=== PATIENT | male | born 1950 | race Caucasian/White ===

== ENCOUNTER → 2016-02-28 | Outpatient (CLI) | payer MEDICARE, OTHER ==
[2016-02-28 13:47] LABS: RED CELL DISTRIBUTION WIDTH 12.7 % (11.5-14.5); WHITE BLOOD COUNT 7.1 K/mm3 (4.0-10.0)
[2016-02-28 13:50] LABS: ALBUMIN 3.6 GM/DL (3.2-5.2); ALBUMIN/GLOBULIN RATIO 1.24 (1.00-1.93); ALKALINE PHOSPHATASE 59 U/L (45-117); ALT/SGPT 33 U/L (12-78); ANION GAP 5 MEQ/L (8-16); AST/SGOT 13 U/L (15-37); BILIRUBIN,TOTAL 0.3 MG/DL (0.2-1.0); BLOOD UREA NITROGEN 25 MG/DL (7-18); CALCIUM LEVEL 8.6 MG/DL (8.8-10.2); CARBON DIOXIDE LEVEL 35 MEQ/L (21-32); CHLORIDE LEVEL 106 MEQ/L (98-107); CHOLESTEROL LEVEL 213 MG/DL (<200); CREATININE FOR GFR 1.06 MG/DL (0.70-1.30); GLOMERULAR FILTRATION RATE > 60.0 (>49); GLUCOSE, FASTING 110 MG/DL (80-110); POTASSIUM SERUM 3.7 MEQ/L (3.5-5.1); SODIUM LEVEL 146 MEQ/L (136-145); TOTAL PROTEIN 6.5 GM/DL (6.4-8.2); TRIGLYCERIDES LEVEL 489 MG/DL (<150)
[2016-02-28 13:54] LABS: MEAN CORPUSCULAR HEMOGLOBIN 32.7 pg (27.0-33.0); MEAN CORPUSCULAR VOLUME 93.3 fl (80.0-96.0)
== END ==
LOC: M SMT 08:08
PROVIDERS: ATTEND Internal Medicine
DX: D69.6 Thrombocytopenia, unspecified (principal); I10 Essential (primary) hypertension; R73.01 Impaired fasting glucose; E78.5 Hyperlipidemia, unspecified

== ENCOUNTER → 2016-07-03 | Outpatient (CLI) | payer MEDICARE, OTHER ==
[~2016-07-03] VITALS: Ht 175.3 cm; Wt 83.9 kg
[~2016-07-03] MED LIST: ASPI1TAB PO; CENTTAB PO; CHLO25TA PO; CO-QCAP PO; COZA50TA PO; FISH1000 PO; FLOM5CAP PO; LIDOCAINE 2% INJ 100 MG/5 ML SDV (FOR ANES.) As Ordered ONE; LR 1,000 ML IV SCH; NASA1SPR; OSTETAB4 PO; PRIL20CA9 PO; PROPOFOL 200 MG/20 ML VIAL As Ordered ONE; SUCR1TA PO; VITMTA PO; ZYRT10TA2 PO
--- NOTE | 2016-07-03 13:28 | ROOR ---
Patient Name: Shubham Mao Procedure Date: 07/03/2016 12:39 PM Date of : 1950 Age: 66 Room: [facility] Gender: Male Note Status: Finalized Procedure: Colonoscopy Indications: Last colonoscopy: 2007, Heme positive stool Providers: Shen Landeros MD Referring MD: Jon Coates MD Requesting Provider: Medicines: Monitored Anesthesia Care Complications: No immediate complications. Procedure: Pre-Anesthesia Assessment: - Prior to the procedure, a History and Physical was performed, and patient medications and allergies were reviewed. The patient is competent. The risks and benefits of the procedure and the sedation options and risks were discussed with the patient. All questions were answered and informed consent was obtained. Patient identification and proposed procedure were verified by the physician, the nurse and the anesthesiologist in the procedure room. Mental Status Examination: alert and oriented. Airway Examination: normal oropharyngeal airway and neck mobility. CV Examination: regular rate and rhythm. Prophylactic Antibiotics: The patient does not require prophylactic antibiotics. Prior Anticoagulants: The patient has taken no previous anticoagulant or antiplatelet agents. ASA Grade Assessment: II - A patient with mild systemic disease. After reviewing the risks and benefits, the patient was deemed in satisfactory condition to undergo the procedure. The anesthesia plan was to use monitored anesthesia care (MAC). Immediately prior to administration of medications, the patient was re-assessed for adequacy to receive sedatives. The heart rate, respiratory rate, oxygen saturations, blood pressure, adequacy of pulmonary ventilation, and response to care were monitored throughout the procedure. The physical status of the patient was re-assessed after the procedure. The was introduced through the anus and advanced to the cecum, identified by appendiceal orifice and ileocecal valve. The colonoscopy was performed without difficulty. The patient tolerated the procedure well. The quality of the bowel preparation was good. Findings: The perianal and digital rectal examinations were normal. A 10 mm polyp was found in the cecum. The polyp was sessile. The polyp was removed with a hot snare. Resection was complete, but the polyp tissue was only partially retrieved. Estimated blood loss: none. The exam was otherwise normal throughout the examined colon. Impression: - One 10 mm polyp in the cecum, removed with a hot snare. Complete resection. Partial retrieval. Recommendation: - Discharge patient to home. - Resume previous diet. - Continue present medications. - Await pathology results. - Telephone endoscopist for pathology results in 10 days. Shen Landeros MD 07/03/2016 1:28:02 PM Number of Addenda: 0 Note Initiated On: 07/03/2016 12:39 PM Estimated Blood Loss: Estimated blood loss: none.
[2016-07-03 13:45] VITALS: BP 106/65
== END | disposition home or self-care (01) ==
LOC: M OPP 11:52
PROVIDERS: ATTEND Surgery
DX: R19.5 Other fecal abnormalities (principal); D12.0 Benign neoplasm of cecum; I10 Essential (primary) hypertension; Z86.19 Personal history of other infectious and parasitic diseases; M19.90 Unspecified osteoarthritis, unspecified site; G47.30 Sleep apnea, unspecified; K21.9 Gastro-esophageal reflux disease without esophagitis; R06.83 Snoring; N40.1 Benign prostatic hyperplasia with lower urinary tract symptoms; Z85.828 Personal history of other malignant neoplasm of skin; Z88.8 Allergy status to other drugs, medicaments and biological substances; Z79.82 Long term (current) use of aspirin; Z79.899 Other long term (current) drug therapy

== ENCOUNTER 2016-07-07 11:23 | Emergency (ER) | payer MEDICARE, OTHER ==
[~2016-07-07] VITALS: Ht 175.3 cm; Wt 81.6 kg
[~2016-07-07 11:23] MED LIST changes: -LIDOCAINE 2% INJ 100 MG/5 ML SDV (FOR ANES.) As Ordered ONE; -LR 1,000 ML IV SCH; -PRIL20CA9 PO; -PROPOFOL 200 MG/20 ML VIAL As Ordered ONE; -SUCR1TA PO; -VITMTA PO
[2016-07-07] MEDS ORDERED: NS 1,000 ML IV ONE (12:30)
[2016-07-07 12:52] LABS: BASO % 0.5 % (0.0-1.0); EOS # 0.2 K/mm3 (0.0-0.50); EOS % 1.9 % (0.0-3.0); LARGE UNSTAINED CELL # 0.2 K/mm3 (0.0-0.4); LYMPH # 4.2 K/mm3 (1.5-4.5); LYMPH % 48.6 % (24.0-44.0); MEAN CORPUSCULAR HEMOGLOBIN 32.7 pg (27.0-33.0); MEAN CORPUSCULAR HGB CONC 35.5 g/dl (32.0-36.5); MEAN CORPUSCULAR VOLUME 92.2 fl (80.0-96.0); MONO # 0.4 K/mm3 (0.0-0.8); NEUTROPHILS # 3.5 K/mm3 (1.8-7.7); PLATELET COUNT, AUTOMATED 134 k/mm3 (150-450); RED CELL DISTRIBUTION WIDTH 12.7 % (11.5-14.5); WHITE BLOOD COUNT 8.3 K/mm3 (4.0-10.0)
[2016-07-07 13:10] LABS: INR 0.96
[2016-07-07 13:21] LABS: ALBUMIN 3.9 GM/DL (3.2-5.2); ALBUMIN/GLOBULIN RATIO 1.34 (1.00-1.93); ALKALINE PHOSPHATASE 53 U/L (45-117); ALT/SGPT 49 U/L (12-78); ANION GAP 7 MEQ/L (8-16); AST/SGOT 22 U/L (15-37); BILIRUBIN,DIRECT 0.1 MG/DL (0.0-0.2); BILIRUBIN,TOTAL 0.6 MG/DL (0.2-1.0); BLOOD UREA NITROGEN 25 MG/DL (7-18); CALCIUM LEVEL 8.7 MG/DL (8.8-10.2); CARBON DIOXIDE LEVEL 31 MEQ/L (21-32); CHLORIDE LEVEL 104 MEQ/L (98-107); CREATININE FOR GFR 1.05 MG/DL (0.70-1.30); GLOMERULAR FILTRATION RATE > 60.0 (>49); GLUCOSE, FASTING 113 MG/DL (80-110); POTASSIUM SERUM 3.6 MEQ/L (3.5-5.1); SODIUM LEVEL 142 MEQ/L (136-145); TOTAL PROTEIN 6.8 GM/DL (6.4-8.2)
[2016-07-07] MEDS ORDERED: ISOVUE-370 76% 100ML VIAL (Q9967) As Ordered ONE (13:25)
--- NOTE | 2016-07-07 15:00 | REP ---
Clinical: Abdominal pain and rectal bleeding with recent colonoscopy. Technique: Axial contrast enhanced images from the lung bases to the pubic symphysis using 100 ml Isovue 370 intravenous contrast material with coronal and sagittal re-formations. Findings: Diffuse intra-abdominal, retroperitoneal and pelvic adenopathy is appreciated with lymph nodes measuring greater than 2.8 cm maximal diameter. No surrounding inflammatory changes or fluid is appreciated, and findings are concerning for lymphoma. Liver, spleen, pancreas, gallbladder, bilateral adrenal glands are normal. The kidneys and demonstrate bilateral cortical and parapelvic cysts without evidence for hydronephrosis, perinephric stranding, intrarenal or obstructing ureteral calculi. The enteric system is unremarkable and without obstruction or acute inflammatory process. Normal terminal ileum and appendix identified in the right lower quadrant. Few scattered sigmoid diverticula noted without acute diverticulitis. Pelvis demonstrates normal bladder. The prostate gland is mildly heterogeneous and enlarged measuring approximately 5.6 cm maximal transverse diameter. No ascites. No free air. Vascular structures are normal. Musculoskeletal structures are within normal limits and without focal osseous abnormality. Lung bases demonstrate minimal basilar atelectasis and mild cardiomegaly. Impression: 1. Diffuse intra-abdominal, retroperitoneal and pelvic adenopathy with lymph nodes measuring greater than 2.8 cm diameter highly suggestive of lymphoma. 2. Enlarged prostate gland. Signed by Christiano Brown MD 07/07/2016 02:52 P
[2016-07-07 16:02] VITALS: BP 142/68
[2016-07-07] MEDS ORDERED: VITMTA PO (22:57)
[2016-07-08] MEDS ORDERED: SUCR1TA PO (08:08)
[2016-07-08] MEDS ORDERED: PRIL20CA9 PO (08:08)
== END 2016-07-07 16:23 | disposition home or self-care (01) ==
LOC: M ED 12:41
DX: K92.1 Melena (principal); R59.9 Enlarged lymph nodes, unspecified; N40.0 Benign prostatic hyperplasia without lower urinary tract symptoms; Z79.899 Other long term (current) drug therapy; Z88.8 Allergy status to other drugs, medicaments and biological substances

== ENCOUNTER 2016-07-07 19:55 | Inpatient (IN) | payer MEDICARE, OTHER ==
[~2016-07-07] VITALS: Ht 175.3 cm; Wt 84.1 kg
[2016-07-07 21:06] LABS: ANION GAP 9 MEQ/L (8-16); BLOOD UREA NITROGEN 22 MG/DL (7-18); CALCIUM LEVEL 8.3 MG/DL (8.8-10.2); CARBON DIOXIDE LEVEL 27 MEQ/L (21-32); CHLORIDE LEVEL 106 MEQ/L (98-107); CREATININE FOR GFR 0.96 MG/DL (0.70-1.30); GLOMERULAR FILTRATION RATE > 60.0 (>49); GLUCOSE, FASTING 97 MG/DL (80-110); POTASSIUM SERUM 3.3 MEQ/L (3.5-5.1); SODIUM LEVEL 142 MEQ/L (136-145)
[2016-07-07 21:15] LABS: BASO % 0.6 % (0.0-1.0); EOS # 0.1 K/mm3 (0.0-0.50); EOS % 1.7 % (0.0-3.0); LARGE UNSTAINED CELL # 0.2 K/mm3 (0.0-0.4); LARGE UNSTAINED CELL % 2.5 % (0.0-4.0); LYMPH # 4.5 K/mm3 (1.5-4.5); LYMPH % 52.1 % (24.0-44.0); MEAN CORPUSCULAR HEMOGLOBIN 33.6 pg (27.0-33.0); MEAN CORPUSCULAR VOLUME 91.2 fl (80.0-96.0); MONO # 0.4 K/mm3 (0.0-0.8); MONO % 4.6 % (0.0-5.0); NEUTROPHILS # 3.2 K/mm3 (1.8-7.7); NEUTROPHILS % 38.5 % (36.0-66.0); PLATELET COUNT, AUTOMATED 136 k/mm3 (150-450); RED CELL DISTRIBUTION WIDTH 12.7 % (11.5-14.5); WHITE BLOOD COUNT 8.2 K/mm3 (4.0-10.0)
[2016-07-07 21:27] LABS: MEAN CORPUSCULAR HGB CONC 36.9 g/dl (32.0-36.5)
[2016-07-07] MEDS ORDERED: NS 1,000 ML IV SCH (22:47)
[2016-07-07] MEDS ORDERED: VITMTA PO (22:57)
[2016-07-07] MEDS: ONDANSETRON 4MG/2ML VIAL (J2405) IV SCH (23:25)
[2016-07-07 23:59] VITALS: BP 136/67
[2016-07-08] MEDS: PANTOPRAZOLE 40MG INJ (PROTONIX) (C9113) IV SCH ×2 (02:09→08:55)
[2016-07-08 04:05] VITALS: BP 126/70
[2016-07-08 04:15] LABS: MEAN CORPUSCULAR HEMOGLOBIN 33.2 pg (27.0-33.0); MEAN CORPUSCULAR HGB CONC 36.3 g/dl (32.0-36.5); MEAN CORPUSCULAR VOLUME 91.6 fl (80.0-96.0); RED CELL DISTRIBUTION WIDTH 12.8 % (11.5-14.5); WHITE BLOOD COUNT 10.5 K/mm3 (4.0-10.0)
--- NOTE | 2016-07-08 04:29 | HPE ---
DATE OF ADMISSION: 07/07/2016 PRIMARY CARE PROVIDER: Dr. Jon Coates. REASON FOR ADMISSION: Hematochezia. HISTORY OF PRESENT ILLNESS: Patient is a 66-year-old male with past medical history significant for skin cancer, hypertension, obstructive sleep apnea on continuous positive airway pressure (CPAP), arthritis, and degenerative disc disease, presented to the emergency room with bright red blood in the stool that started around this morning. The patient had recently done a home occult blood test which came back positive and he underwent a colonoscopy by Dr. Landeros on Saturday. It was positive for a polyp. The pathology came back as tubular adenoma. Earlier this morning, the patient started to have bright red stool that later became black tarry stool. He stated he had about 6-7 episodes since this morning. He denied any vomiting, but was complaining of nausea. He denied any abdominal pain. He states he takes Aleve daily, at least two a day. Never had an esophagogastroduodenoscopy (EGD). He presented to the emergency room earlier this morning, underwent a CT scan which was negative. He was discharged home, but the blood in the stool had continued so he presented back into the emergency room. Hospitalist was called for the admission. Dr. Paiz was also consulted from the emergency room. REVIEW OF SYSTEMS: 12-point review of systems was obtained all of which was negative except for those mentioned above. PAST MEDICAL HISTORY: Significant for skin cancer, hypertension, obstructive sleep apnea on continuous positive airway pressure (CPAP), arthritis, degenerative disc disease. PAST SURGICAL HISTORY: Significant for no surgery and colonoscopy. ALLERGIES: To STATIN, reaction muscle aches; ERYTHROMYCIN, reaction unknown. SOCIAL HISTORY: The patient denies any tobacco use. Drinks occasionally. Lives at home with his . FAMILY HISTORY: Significant for bladder cancer, thyroid cancer, heart disease, diabetes, and stroke. HOME MEDICATIONS: Include: - aspirin 81 mg at bedtime - Zyrtec 10 mg daily - chlorthalidone 25 mg daily - CoQ10 - omega-3 fish oil one capsule by mouth twice a day - fish oil 1200 mg three times a day - Cozaar 75 mg at bedtime - multivitamin one tablet daily - Osteo Bi-Flex one tablet by mouth twice a day - Flomax 0.8 mg by mouth daily PHYSICAL FINDINGS: Vital signs: On admission, temperature 98, pulse 67, respiratory rate 18, blood pressure is 132/65, pulse oximetry 97% on room air. HEENT: Pupils equal, round, reactive to light and accommodation. Neck: Supple. No jugular venous distention (JVD). The patient has bilateral cervical adenopathy, nontender to palpation. Lungs. Clear to auscultation (CTA) bilaterally. Abdomen: Soft, nontender, nondistended. Extremities: No clubbing, cyanosis or edema. Neurologic: Cranial nerves II-XII grossly intact. No focal deficits. LABORATORY FINDINGS: WBC 6.2, hemoglobin 13.3 which dropped from earlier this morning was 14.5, hematocrit 36.1 which dropped from 40.9, platelet count 136. Sodium 142, potassium 3.3, chloride 106, BUN 22, creatinine 0.96, fasting glucose 97. Abdominal CT which was done earlier today showed diffuse intraabdominal retroperitoneal pelvic adenopathy with lymph nodes measuring greater than 2.2 diameter higher suggestive of lymphoma, enlarged prostate gland. ASSESSMENT AND PLAN: 1. Hematochezia. The patient had a recent colonoscopy which was positive for polyps. Pathology came back as adenoma. We will continue to monitor hemoglobin and hematocrit. We will type and screen the patient and transfuse if patient becomes symptomatic or if hemoglobin drops below 8. Orthostatic vital signs were negative. The patient denies any dizziness, any chest pain or shortness of breath at this time. We will continue to trend hemoglobin/hematocrit. We will start the patient on intravenous (IV) Protonix 40 mg IV twice a day. We will consult Dr. Paiz of surgery for possible endoscopy. 2. Adenopathy. The patient has diffuse adenopathy, bilateral cervical adenopathy, as well as adenopathy seen on CT scan intraabdominal and pelvic. The patient stated he has had this since prior to January. cevical nodes were nontender and not increasing in size. The patient will likely need a lymph node biopsy for diagnosis. 3. History of hypertension. We will resume the patient's home medications. 4. History of obstructive sleep apnea. The patient may use home continuous positive airway pressure (CPAP) machine. 5. Arthritis. The patient states he has been using Advil at least twice a day daily for a long time. He was advised not to use any more nonsteroidal anti-inflammatory drugs at this time. 6. Deep venous thrombosis (DVT) prophylaxis. Thromboembolism deterrent stockings (TEDS) and sequentials while in bed. MTDD
[2016-07-08 04:34] LABS: ALBUMIN 2.9 GM/DL (3.2-5.2); ALBUMIN/GLOBULIN RATIO 1.07 (1.00-1.93); ALKALINE PHOSPHATASE 40 U/L (45-117); ALT/SGPT 35 U/L (12-78); ANION GAP 5 MEQ/L (8-16); AST/SGOT 17 U/L (15-37); BILIRUBIN,TOTAL 0.7 MG/DL (0.2-1.0); BLOOD UREA NITROGEN 21 MG/DL (7-18); CALCIUM LEVEL 7.8 MG/DL (8.8-10.2); CARBON DIOXIDE LEVEL 30 MEQ/L (21-32); CHLORIDE LEVEL 106 MEQ/L (98-107); CREATININE FOR GFR 0.93 MG/DL (0.70-1.30); GLOMERULAR FILTRATION RATE > 60.0 (>49); GLUCOSE, FASTING 112 MG/DL (80-110); POTASSIUM SERUM 3.2 MEQ/L (3.5-5.1); SODIUM LEVEL 141 MEQ/L (136-145); TOTAL PROTEIN 5.6 GM/DL (6.4-8.2)
[2016-07-08] MEDS: ONDANSETRON 4MG/2ML VIAL (J2405) IV SCH (06:54)
[2016-07-08 08:00] VITALS: BP 126/61
[2016-07-08] MEDS ORDERED: POTASSIUM CHLORIDE 10 MEQ SR TABLET PO ONE (08:00)
[2016-07-08] MEDS ORDERED: PRIL20CA9 PO (08:08)
[2016-07-08] MEDS ORDERED: SUCR1TA PO (08:08)
[2016-07-08] MEDS ORDERED: CETIRIZINE (ZyrTEC) 10 MG TAB PO SCH (09:00)
[2016-07-08] MEDS ORDERED: MULTIVITAMINS/MINERALS THERAP 1 TAB PO SCH (09:00)
[2016-07-08] MEDS ORDERED: TAMSULOSIN 0.4 MG CAP PO SCH (09:00)
[2016-07-08] MEDS ORDERED: OMEGA-3 1050MG CAPSULE PO SCH (09:00)
[2016-07-08] MEDS ORDERED: CHLORTHALIDONE 25 MG TAB PO SCH (09:00)
--- NOTE | 2016-07-08 09:41 | CR ---
DATE OF CONSULTATION: 07/08/2016 CHIEF COMPLAINT: Blood in stool. HISTORY OF PRESENT ILLNESS: The patient is a 66-year-old male patient who recently had a colonoscopy done by Dr. Landeros this past Saturday. He had a polyp that was resected that came back as a tubular adenoma. Early yesterday morning, he had a bright red bowel movement. Following that, he had a large black tarry stool. So, he came in to the emergency room for evaluation. His hemoglobin was stable. He had no problems with weakness or dizziness, so he was discharged home. Yesterday evening, he came back in to the emergency room because he was continuing to have multiple episodes of tarry stools and was starting to get dizzy. So, he was admitted through the hospitalist service in the evening. During his emergency room (ER) visit, because of the bloody stools, he had a CAT scan, which did show that he had extensive lymphadenopathy, both retroperitoneal and in the pelvis suggestive for lymphoma with lymph nodes measuring greater than 2.2 cm in diameter. So, I have been asked to evaluate him for both his gastrointestinal (GI) bleeding in case he needs a scope done, as well as for his lymphadenopathy. This morning, the patient denies any fevers or chills. No nausea or vomiting. No weakness or dizziness. No more bowel movements overnight. He said that he does take two Aleve every morning on an empty stomach, but he denies any heartburn, acid reflux. Drinks alcohol socially, maybe once a week at the most. Also, drinks coffee every morning. Does not take any medications for acid in his stomach, except for on an as-needed basis. No other problems with blood in his stool or dark tarry stools prior to his colonoscopy. PAST MEDICAL HISTORY: Positive for skin cancer, hypertension, sleep apnea, arthritis, degenerative disc disease. PAST SURGICAL HISTORY: Negative other than colonoscopy. ALLERGIES: STATIN, ERYTHROMYCIN. SOCIAL HISTORY: Denies drug or tobacco abuse. Drinks alcohol socially. FAMILY HISTORY: Noncontributory. HOME MEDICATIONS: Please see medical record. REVIEW OF SYSTEMS: Pertinent positives and negatives stated in history of present illness (HPI). PHYSICAL EXAMINATION: General: Alert and oriented times three. No acute distress. Vital signs: Temperature 97.7, pulse 55, respirations 18, blood pressure 126/61, pulse oximetry 96% on room air. HEENT: Pupils equal, round, and react to light accommodation. Heart: S1, S2, regular rate and rhythm. Lungs: Clear to auscultation bilaterally. Abdomen: Soft, nontender, nondistended. Bowel sounds positive. Neck: There is significant lymphadenopathy in bilateral cervical chains, as well as supraclavicularly. Extremities: No clubbing, cyanosis, or edema. LABORATORY DATA: Hemoglobin 13.3 last evening, down to 12 this morning. IMAGING STUDIES: CT abdomen and pelvis from 07/07/2016 shows diffuse intra-abdominal, retroperitoneal, and pelvic adenopathy with lymph nodes measuring greater than 2.8 cm diameter in diameter, highly suggestive for lymphoma, as well as an enlarged prostate gland. ASSESSMENT AND PLAN: The patient is a 66-year-old patient of Dr. Landeros, post polypectomy on this past Saturday. Pathology shows an adenomatous polyp, tubular adenoma. He had normal bowel movements postoperatively. However, yesterday, he started to have bright red stools followed by melanotic stools. He has been stable since he has been in the hospital. Feeling well with just intravenous (IV) fluids. After speaking with him, it does sound like he may be at risk for a gastritis versus gastric ulcer that may have bled briefly causing his bright red followed by melanotic stools. However, this also could be secondary to post polypectomy versus some other source. At this time, I gave the patient the option of an upper endoscopy versus medical management. He would prefer to not have the upper endoscopy unless it is absolutely necessary. We will attempt to treat with Carafate and Prilosec for 1 month. If symptoms continue or get worse, then he will likely need repeat endoscopy. As far as lymphadenopathy, he does have palpable lymph nodes in the neck and supraclavicularly. He also has extensive lymphadenopathy in his abdomen on CAT scan. Recommendation is to followup with Dr. Landeros this week in the office if possible. If not, some time within the next couple weeks, and likely will need lymph node biopsy to determine the next step for treatment. Thank you for the consultation.
--- NOTE | 2016-07-08 10:42 | DSES ---
DATE OF ADMISSION: 07/07/2016 DATE OF DISCHARGE: 07/08/2016 PRIMARY CARE PROVIDER: Jon Coates MD CONSULTATIONS: Dr. Paiz for Dr. Landeros. PROCEDURES PERFORMED: None. COMPLICATIONS: None. ADMISSION/DISCHARGE DIAGNOSES: 1. Bright red blood per rectum. 2. Adenopathy noted diffusely in the neck as well as the abdomen on CT scan. 3. History of hypertension. 4. Obstructive sleep apnea. 5. Longstanding history of arthritis with [id number] nonsteroidal use. BRIEF HOSPITAL COURSE: Mr. Mao is a pleasant 66-year-old gentleman who presented with hematochezia for the last 3 or 4 days. He did have a colonoscopy performed by Dr. Landeros this past Saturday that resulted in a polypectomy, which was positive for adenomatous polyp, tubular adenoma. At any rate, he does have a followup scheduled; however, he has never had an EGD. I did speak with Dr. Paiz the surgeon metal control coordinator this weekend and he felt that this may be related to his Aleve use, which we encouraged him to discontinue the Aleve and to hold aspirin for the next week or so. His CT scan of the abdomen and pelvis was concerning for some adenopathy, but no other acute findings and on physical examination he does have ropey adenopathy noted in the neck. For further information regarding the intake physical, labs and diagnostics, please refer the history and physical, as well as Dr. Paiz's note. Today his condition is stable. DISPOSITION: Discharge to home. DISCHARGE MEDICATIONS: - Hold aspirin. - Hold Aleve. - omeprazole 20 mg twice a day - Carafate 1 gram before meals and at bedtime - Zyrtec 10 mg daily - chlorthalidone 25 mg daily - CoQ10 one tablet twice a day - fish oil 1200 mg three times a day - Cozaar 75 mg at bedtime - multivitamin one tablet daily - Nasacort allergy on inhalation both nostrils daily - Osteo Bi-Flex one tablet twice a day - Flomax 0.8 mg daily DISCHARGE INSTRUCTIONS: Discharge to home. Activity as tolerated. Followup with Dr. Landeros in a week. Dr. Coates in the next 2-3 weeks. Regular diet. Activity as tolerated. Again, he is to avoid the aspirin and [id number]-[id number] nonsteroidals. Mjmg-seo-nfubryy Tylenol should be fine for the time being and he is instructed to seek medical attention if symptoms should worsen or progress. He voices understanding.
== END 2016-07-08 10:10 | disposition home or self-care (01) | DRG 379 ==
LOC: M ED 21:20 → M ED INP 22:47 → M PCU 23:37
PROVIDERS: ADMIT Internal Medicine; ATTEND Hospitalist
DX: K62.5 Hemorrhage of anus and rectum (principal); G47.33 Obstructive sleep apnea (adult) (pediatric); M19.90 Unspecified osteoarthritis, unspecified site; I10 Essential (primary) hypertension; R59.9 Enlarged lymph nodes, unspecified; Z79.899 Other long term (current) drug therapy

== ENCOUNTER → 2016-08-01 | Outpatient (CLI) | payer MEDICARE, OTHER ==
[~2016-08-01] MED LIST changes: +PRIL20CA9 PO; +SUCR1TA PO; +VITMTA PO
--- NOTE | 2016-08-03 00:07 | ECGEPIP ---
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
== END ==
LOC: M EKG 08:33
PROVIDERS: ATTEND Anesthesiology
DX: Z01.818 Encounter for other preprocedural examination (principal); I10 Essential (primary) hypertension

== ENCOUNTER → 2016-08-09 | Day surgery (SDC) | payer MEDICARE, OTHER ==
[~2016-08-09] VITALS: Ht 175.3 cm; Wt 81.6 kg
[~2016-08-09] MED LIST changes: +ACETAMINOPHEN TAB 650MG DOSE (2X325MG) PO PRN; +BUPIVACAINE HCL 0.25% 30 ML VIAL As Ordered ONE; +GLYCOPYRROLATE INJ 0.2 MG/ML 2 ML VIAL As Ordered ONE; +LIDOCAINE 2% INJ 100 MG/5 ML SDV (FOR ANES.) As Ordered ONE; +LR 1,000 ML IV ONE; +LR 1,000 ML IV SCH; +MIDAZOLAM INJ 2 MG/2 ML VIAL (J2250) As Ordered ONE; +NEOSTIGMINE 1MG/ML 5 ML SYRINGE (J2710) As Ordered ONE; +ONDANSETRON 4MG/2ML VIAL (J2405) As Ordered ONE; +ONDANSETRON 4MG/2ML VIAL (J2405) IV PRN; +PERCOCET 5MG/325MG TAB PO PRN; +PROPOFOL 200 MG/20 ML VIAL As Ordered ONE; +ROCURONIUM BROMIDE 50 MG/5 ML VIAL/SYRINGE As Ordered ONE; +dexameTHASONE 4 MG/ML 1ML VIAL (J1100) As Ordered ONE; +fentaNYL 100 MCG/2 ML INJECTION (J3010) As Ordered ONE; +fentaNYL 100 MCG/2 ML INJECTION (J3010) IV PRN
[2016-08-09 19:00] VITALS: BP 158/69
--- NOTE | 2016-08-26 07:02 | RO ---
DATE OF PROCEDURE: 08/09/2016 PREOPERATIVE DIAGNOSIS: Diffuse lymphadenopathy. POSTOPERATIVE DIAGNOSIS: Diffuse lymphadenopathy. PROCEDURE PERFORMED: Excisional biopsy left cervical lymph node. SURGEON: Dr. Landeros EGG SMELLER: Dr. Lynn ANESTHESIA: General. INDICATIONS FOR THE PROCEDURE: The patient is a 66-year-old man who had undergone a recent colonoscopy. He had some post colonoscopy bleeding several days later and in the emergency department underwent a CT scan of the abdomen and pelvis. This disclosed extensive adenopathy throughout the abdomen with nodes up to 4 cm in size. Examination also disclosed significant enlarged lymph nodes in the supraclavicular and cervical areas. He is now for a biopsy of a readily palpable left posterior triangle cervical lymph node. OPERATIVE PROCEDURE: The patient was placed under general endotracheal anesthesia. The patient's left neck was prepped and draped in a sterile fashion. There was a node, approximately 2 cm in diameter, readily palpable. An approximately 3 cm, slightly oblique transverse incision was made over this node. The incision was deepened through the subcutaneous tissues. Hemostasis was ensured with electrocautery. The platysma muscle was opened and dissection yielded the node directly beneath this. This was a fleshy rounded node, approximately 1.5 cm in diameter. This was carefully dissected by a combination of sharp and blunt dissection. Several small blood vessels were clipped and divided. The node was removed and sent for pathology evaluation. This was sent fresh. The wound was inspected and hemostasis was ensured. The platysma layer was approximated with several small Vicryl sutures. The skin edges were approximated with a running subcuticular #5-0 Vicryl and Steri-Strips. Some 0.25% Marcaine was infiltrated along the edges of the wound. The patient tolerated the procedure well without apparent complication. He was awakened in the operating room, extubated and moved to the recovery room in stable condition. ANNA
== END | disposition home or self-care (01) ==
LOC: M SDC 10:30
PROVIDERS: ATTEND Surgery
DX: R59.1 Generalized enlarged lymph nodes (principal); I10 Essential (primary) hypertension; J30.9 Allergic rhinitis, unspecified; C44.90 Unspecified malignant neoplasm of skin, unspecified; N40.0 Benign prostatic hyperplasia without lower urinary tract symptoms; K21.9 Gastro-esophageal reflux disease without esophagitis; K92.2 Gastrointestinal hemorrhage, unspecified; M19.011 Primary osteoarthritis, right shoulder; M19.012 Primary osteoarthritis, left shoulder; R06.83 Snoring; G47.33 Obstructive sleep apnea (adult) (pediatric); Z88.8 Allergy status to other drugs, medicaments and biological substances; Z79.899 Other long term (current) drug therapy; Z86.69 Personal history of other diseases of the nervous system and sense organs
CPT/HCPCS: 38510; 88305; J1100; J2250; J2405; J2710; J3010

== ENCOUNTER → 2016-09-06 | Outpatient (REF) | payer MEDICARE, OTHER ==
[~2016-09-06] MED LIST changes: -ACETAMINOPHEN TAB 650MG DOSE (2X325MG) PO PRN; -BUPIVACAINE HCL 0.25% 30 ML VIAL As Ordered ONE; -GLYCOPYRROLATE INJ 0.2 MG/ML 2 ML VIAL As Ordered ONE; -LIDOCAINE 2% INJ 100 MG/5 ML SDV (FOR ANES.) As Ordered ONE; -LR 1,000 ML IV ONE; -LR 1,000 ML IV SCH; -MIDAZOLAM INJ 2 MG/2 ML VIAL (J2250) As Ordered ONE; -NEOSTIGMINE 1MG/ML 5 ML SYRINGE (J2710) As Ordered ONE; -ONDANSETRON 4MG/2ML VIAL (J2405) As Ordered ONE; -ONDANSETRON 4MG/2ML VIAL (J2405) IV PRN; -PERCOCET 5MG/325MG TAB PO PRN; -PROPOFOL 200 MG/20 ML VIAL As Ordered ONE; -ROCURONIUM BROMIDE 50 MG/5 ML VIAL/SYRINGE As Ordered ONE; -dexameTHASONE 4 MG/ML 1ML VIAL (J1100) As Ordered ONE; -fentaNYL 100 MCG/2 ML INJECTION (J3010) As Ordered ONE; -fentaNYL 100 MCG/2 ML INJECTION (J3010) IV PRN
[2016-09-07 14:15] LABS: BETA 2 MICROGLOBULIN 1.9 mg/L (0.6-2.4); CYTOMEGALOVIRUS IgG ANTIBODY <0.60 U/mL (0.00-0.59)
== END ==
LOC: M LAB REF 12:36
PROVIDERS: ATTEND Internal Medicine Medical Oncology
DX: C18.9 Malignant neoplasm of colon, unspecified (principal)

== ENCOUNTER → 2016-09-18 | Outpatient (CLI) | payer MEDICARE, OTHER ==
--- NOTE | 2016-09-19 11:02 | REP ---
Whole body PET CT scan: Comparison is the CT of the abdomen and pelvis dated 07/07/2016. Whole-body scanning is performed from skull base to the upper thighs. Neck and supraclavicular areas: There are no hypermetabolic foci. Chest: There are no hypermetabolic foci. Abdomen, pelvis and upper thighs: There are no hypermetabolic foci. The enlarged periaortic, pelvic and mesenteric nodes identified on the comparison CT are again present on the CT accompanying the PET scan. However, there is no radiolabeling of these enlarged lymph nodes. Impression: There are no hypermetabolic foci. The enlarged abdominal and pelvic lymph nodes demonstrate no radiolabeling. The study is performed with 10 mCi of F 18 FDG. Signed by Artemio Thomas MD 09/19/2016 10:53 A
== END ==
LOC: M PLARAD 11:09
PROVIDERS: ATTEND Internal Medicine Medical Oncology
DX: C91.10 Chronic lymphocytic leukemia of B-cell type not having achieved remission (principal)
CPT/HCPCS: 78815; A9552

== ENCOUNTER → 2016-09-20 | Outpatient (REF) | payer MEDICARE, OTHER | LOC: M LAB REF 17:35 | PROVIDERS: ATTEND Internal Medicine Medical Oncology | DX: C85.10 Unspecified B-cell lymphoma, unspecified site (principal) ==

== ENCOUNTER → 2017-05-09 | Outpatient (REF) | payer MEDICARE, OTHER | LOC: M LAB REF 22:04 | DX: L72.3 Sebaceous cyst (principal) | CPT/HCPCS: 87205 ==

== ENCOUNTER → 2017-08-05 | Outpatient (CLI) | payer MEDICARE, OTHER ==
[2017-08-05 14:05] LABS: HEMATOCRIT 42.9 % (42.0-52.0); HEMOGLOBIN 15.3 g/dl (13.5-17.5); MEAN CORPUSCULAR HEMOGLOBIN 32.3 pg (27.0-33.0); MEAN CORPUSCULAR HGB CONC 35.7 g/dl (32.0-36.5); MEAN CORPUSCULAR VOLUME 90.5 fl (80.0-96.0); PLATELET COUNT, AUTOMATED 134 10^3/uL (150-450); RED BLOOD COUNT 4.74 10^6/uL (4.30-6.10); RED CELL DISTRIBUTION WIDTH 13.5 % (11.5-14.5)
[2017-08-05 15:26] LABS: POSITIVE DIFF POS FLAG
[2017-08-05 15:27] LABS: ADD MANUAL DIFFER YES; DIFF SLIDE NUMBER 136
[2017-08-05 15:42] LABS: ATYPICAL LYMPH 13 % (0-5); LYMPHOCYTES 43 % (16-52); MONOCYTES 19 % (0-8); NEUTROPHILS 25 % (35-75); PLATELET ESTIMATE DECREASED (NORMAL)
== END ==
LOC: M SMT 08:30
DX: C91.10 Chronic lymphocytic leukemia of B-cell type not having achieved remission (principal)
CPT/HCPCS: 85025

== ENCOUNTER → 2017-09-23 | Outpatient (CLI) | payer MEDICARE, OTHER ==
[2017-09-23 14:27] LABS: CHOLESTEROL LEVEL 174 MG/DL (<200); CHOLESTEROL RISK RATIO 4.971 (<5); HDL CHOLESTEROL 35 MG/DL (>40); LDL CHOLESTEROL 107.6 MG/DL (<100); NON-HDL-C 139 MG/DL; TRIGLYCERIDES LEVEL 157 MG/DL (<150)
== END ==
LOC: M SMT 08:02
DX: E78.5 Hyperlipidemia, unspecified (principal)
CPT/HCPCS: 80061

== ENCOUNTER → 2017-09-30 | Outpatient (CLI) | payer MEDICARE, OTHER ==
[2017-09-30 13:13] LABS: HEMOGLOBIN 15.2 g/dl (13.5-17.5); MEAN CORPUSCULAR HGB CONC 36.2 g/dl (32.0-36.5); MEAN CORPUSCULAR VOLUME 91.3 fl (80.0-96.0); PLATELET COUNT, AUTOMATED 128 10^3/uL (150-450); RED CELL DISTRIBUTION WIDTH 14.6 % (11.5-14.5); WHITE BLOOD COUNT 21.7 10^3/uL (4.0-10.0)
[2017-09-30 13:27] LABS: ALBUMIN 3.2 GM/DL (3.2-5.2); ALBUMIN/GLOBULIN RATIO 0.97 (1.00-1.93); ALKALINE PHOSPHATASE 103 U/L (45-117); ALT/SGPT 27 U/L (12-78); ANION GAP 8 MEQ/L (8-16); AST/SGOT 27 U/L (7-37); BILIRUBIN,TOTAL 0.5 MG/DL (0.2-1.0); BLOOD UREA NITROGEN 21 MG/DL (7-18); CALCIUM LEVEL 8.9 MG/DL (8.8-10.2); CARBON DIOXIDE LEVEL 34 MEQ/L (21-32); CHLORIDE LEVEL 99 MEQ/L (98-107); CREATININE FOR GFR 1.16 MG/DL (0.70-1.30); GLOMERULAR FILTRATION RATE > 60.0 (>49); GLUCOSE, FASTING 111 MG/DL (70-100); SODIUM LEVEL 141 MEQ/L (136-145); TOTAL PROTEIN 6.5 GM/DL (6.4-8.2)
[2017-09-30 13:37] LABS: ADD MANUAL DIFFER YES; DIFF SLIDE NUMBER 158; POS COUNT POS FLAG; POSITIVE DIFF POS FLAG; POSITIVE MORPH POS FLAG
[2017-09-30 13:45] LABS: POTASSIUM SERUM 2.8 MEQ/L (3.5-5.1)
[2017-09-30 14:50] LABS: LYMPHOCYTES 9 % (16-52); MONOCYTES 24 % (0-8); NEUTROPHILS 67 % (35-75)
[2017-09-30 14:51] LABS: PLATELET ESTIMATE DECREASED (NORMAL)
== END ==
LOC: M SMT 08:37
DX: C91.10 Chronic lymphocytic leukemia of B-cell type not having achieved remission (principal)
CPT/HCPCS: 80053

== ENCOUNTER → 2017-10-02 | Outpatient (CLI) | payer MEDICARE, OTHER ==
[2017-10-02 13:36] LABS: HEMATOCRIT 40.2 % (42.0-52.0); HEMOGLOBIN 14.4 g/dl (13.5-17.5); MEAN CORPUSCULAR HEMOGLOBIN 32.8 pg (27.0-33.0); MEAN CORPUSCULAR HGB CONC 35.8 g/dl (32.0-36.5); MEAN CORPUSCULAR VOLUME 91.6 fl (80.0-96.0); PLATELET COUNT, AUTOMATED 106 10^3/uL (150-450); RED BLOOD COUNT 4.39 10^6/uL (4.30-6.10); WHITE BLOOD COUNT 16.6 10^3/uL (4.0-10.0)
[2017-10-02 13:47] LABS: ADD MANUAL DIFFER YES; ALBUMIN 3.1 GM/DL (3.2-5.2); ALKALINE PHOSPHATASE 117 U/L (45-117); ALT/SGPT 23 U/L (12-78); ANION GAP 9 MEQ/L (8-16); AST/SGOT 17 U/L (7-37); BILIRUBIN,TOTAL 0.3 MG/DL (0.2-1.0); BLOOD UREA NITROGEN 18 MG/DL (7-18); CALCIUM LEVEL 8.5 MG/DL (8.8-10.2); CARBON DIOXIDE LEVEL 31 MEQ/L (21-32); CHLORIDE LEVEL 103 MEQ/L (98-107); CREATININE FOR GFR 1.05 MG/DL (0.70-1.30); DIFF SLIDE NUMBER 181; GLOMERULAR FILTRATION RATE > 60.0 (>49); GLUCOSE, FASTING 112 MG/DL (70-100); POS COUNT POS FLAG; POSITIVE MORPH POS FLAG; POTASSIUM SERUM 3.4 MEQ/L (3.5-5.1); SODIUM LEVEL 143 MEQ/L (136-145); TOTAL PROTEIN 6.2 GM/DL (6.4-8.2)
[2017-10-02 14:29] LABS: BANDS 10 % (< 11); LYMPHOCYTES 10 % (16-52); METAMYELOCYTES 2 % (0-0); MONOCYTES 2 % (0-8); NEUTROPHILS 76 % (35-75); TOXIC GRANULATION 2+
[2017-10-02 14:44] LABS: ANISOCYTOSIS 2+
[2017-10-02 14:45] LABS: PLATELET ESTIMATE NORMAL (NORMAL)
== END ==
LOC: M SMT 09:21
DX: C91.10 Chronic lymphocytic leukemia of B-cell type not having achieved remission (principal)
CPT/HCPCS: 80053

== ENCOUNTER → 2017-12-16 | Outpatient (CLI) | payer MEDICARE, OTHER ==
[2017-12-16 18:12] LABS: ALBUMIN 3.3 GM/DL (3.2-5.2); ALBUMIN/GLOBULIN RATIO 1.03 (1.00-1.93); ALKALINE PHOSPHATASE 76 U/L (45-117); ALT/SGPT 31 U/L (12-78); ANION GAP 6 MEQ/L (8-16); AST/SGOT 18 U/L (7-37); BILIRUBIN,TOTAL 0.5 MG/DL (0.2-1.0); BLOOD UREA NITROGEN 20 MG/DL (7-18); CALCIUM LEVEL 8.6 MG/DL (8.8-10.2); CARBON DIOXIDE LEVEL 32 MEQ/L (21-32); CHLORIDE LEVEL 104 MEQ/L (98-107); CREATININE FOR GFR 0.96 MG/DL (0.70-1.30); GLOMERULAR FILTRATION RATE > 60.0 (>49); GLUCOSE, FASTING 90 MG/DL (70-100); POTASSIUM SERUM 3.9 MEQ/L (3.5-5.1); SODIUM LEVEL 142 MEQ/L (136-145); TOTAL PROTEIN 6.5 GM/DL (6.4-8.2)
[2017-12-16 18:16] LABS: BASO % 0.3 % (0.0-1.0); HEMATOCRIT 42.6 % (42.0-52.0); HEMOGLOBIN 15.3 g/dl (13.5-17.5); IMMATURE GRANULOCYTE % 0.3 % (0-3.0); LYMPH # 1.2 10^3/uL (1.5-4.5); LYMPH % 32.6 % (24.0-44.0); MEAN CORPUSCULAR HEMOGLOBIN 33.5 pg (27.0-33.0); MEAN CORPUSCULAR HGB CONC 35.9 g/dl (32.0-36.5); MEAN CORPUSCULAR VOLUME 93.2 fl (80.0-96.0); MONO # 0.8 10^3/uL (0.0-0.8); MONO % 21.8 % (0.0-5.0); NEUTROPHILS # 1.6 10^3/uL (1.8-7.7); PLATELET COUNT, AUTOMATED 118 10^3/uL (150-450); RED BLOOD COUNT 4.57 10^6/uL (4.30-6.10); RED CELL DISTRIBUTION WIDTH 12.6 % (11.5-14.5); WHITE BLOOD COUNT 3.6 10^3/uL (4.0-10.0)
== END ==
LOC: M SMT 13:07
DX: C91.90 Lymphoid leukemia, unspecified not having achieved remission (principal)
CPT/HCPCS: 80053

== ENCOUNTER → 2017-12-19 | Outpatient (REF) | payer MEDICARE, OTHER | LOC: M LAB REF 17:53 | DX: L72.3 Sebaceous cyst (principal) | CPT/HCPCS: 88305 ==

== ENCOUNTER → 2018-10-22 | Outpatient (CLI) | payer MEDICARE, OTHER ==
[~2018-10-22] MED LIST changes: -ASPI1TAB PO; +ASPI81TA26 PO; +FLOM0.4C39 PO; -FLOM5CAP PO; +ZYRT10CA5 PO; -ZYRT10TA2 PO
[2018-10-22 13:32] LABS: ALBUMIN 3.4 GM/DL (3.2-5.2); ALT/SGPT 30 U/L (12-78); BILIRUBIN,TOTAL 0.6 MG/DL (0.2-1.0); BLOOD UREA NITROGEN 24 MG/DL (7-18); CALCIUM LEVEL 8.4 MG/DL (8.8-10.2); CARBON DIOXIDE LEVEL 30 MEQ/L (21-32); CHLORIDE LEVEL 106 MEQ/L (98-107); CREATININE FOR GFR 1.03 MG/DL (0.70-1.30); GLOMERULAR FILTRATION RATE > 60.0 (>49); GLUCOSE, FASTING 101 MG/DL (70-100); SODIUM LEVEL 142 MEQ/L (136-145); TOTAL PROTEIN 6.5 GM/DL (6.4-8.2)
[2018-10-22 13:49] LABS: HEMOGLOBIN A1c 5.1 %
== END ==
LOC: M SMT 08:32
PROVIDERS: ATTEND Internal Medicine
DX: R73.01 Impaired fasting glucose (principal); I10 Essential (primary) hypertension

== ENCOUNTER → 2018-10-28 | Outpatient (REF) | payer MEDICARE, OTHER ==
[2018-10-28 13:43] LABS: THYROID STIMULATING HORMONE 1.54 uIU/ML (0.358-3.740)
[2018-10-28 13:44] LABS: TOTAL 25(OH) VITAMIN D 34.4 NG/ML (30.0-100.0)
== END ==
LOC: M SFHCPLAZ 11:29
PROVIDERS: ATTEND Internal Medicine
DX: R53.82 Chronic fatigue, unspecified (principal); Z23 Encounter for immunization
CPT/HCPCS: 36415; 82306; 84443; 90732; G0009; G0463

== ENCOUNTER → 2019-02-16 | Outpatient (CLI) | payer MEDICARE, OTHER ==
[2019-02-16 13:49] LABS: BLOOD UREA NITROGEN 25 MG/DL (7-18); CALCIUM LEVEL 8.9 MG/DL (8.8-10.2); CARBON DIOXIDE LEVEL 29 MEQ/L (21-32); CHLORIDE LEVEL 103 MEQ/L (98-107); CREATININE FOR GFR 1.02 MG/DL (0.70-1.30); GLOMERULAR FILTRATION RATE > 60.0 (>42); GLUCOSE, FASTING 98 MG/DL (70-100); POTASSIUM SERUM 4.1 MEQ/L (3.5-5.1); SODIUM LEVEL 140 MEQ/L (136-145)
== END ==
LOC: M PLALAB 11:28
PROVIDERS: ATTEND Internal Medicine Cardiovascular Disease
DX: I10 Essential (primary) hypertension (principal)

== ENCOUNTER → 2019-02-18 | Outpatient (CLI) | payer MEDICARE, OTHER ==
[~2019-02-18] MED LIST changes: +ISOVUE-370 76% 100ML VIAL (Q9967) As Ordered ONE
--- NOTE | 2019-02-18 18:27 | REP ---
CT ANGIOGRAM CHEST: TECHNIQUE: Axial contrast enhanced images from the thoracic inlet to the upper abdomen using 100 mL Isovue 370 intravenous contrast material with multiplanar reformations. The root of the thoracic aorta measures 4.4 cm AP dimension x 5.1 cm tranverse. Ascending thoracic aorta measures 4.6 cm in AP dimension x 4.6 cm in transverse dimension. Proximal aortic arch measures 3.6 cm in diameter and just distal to the aortic arch the thoracic aorta measures 3.3 x 3.1 cm. Inferior aspect of the thoracic aorta measures 2.4 cm in diameter. There is mild atherosclerotic calcification. There is no dissection. The heart is mildly enlarged. No pulmonary embolism is seen. There is no evidence of mediastinal, hilar or chest wall lymphadenopathy. Enhancing nodule in the anterior spleen may represent a hemangioma, approximately 9 mm in diameter. Small cysts are seen in the kidneys. There is mild fibro atelectatic change in the left lower lobe. IMPRESSION: Ectasia of ascending thoracic aorta as discussed above. No dissection. Mild cardiomegaly. Electronically Signed by Artemio Vieira MD 02/18/2019 08:07 P
== END ==
LOC: M RAD 13:21
PROVIDERS: ATTEND Internal Medicine Cardiovascular Disease
DX: I71.2 Thoracic aortic aneurysm, without rupture (principal)
CPT/HCPCS: 71275; Q9967

== ENCOUNTER → 2019-08-18 | Outpatient (CLI) | payer MEDICARE, OTHER ==
[~2019-08-18] MED LIST changes: -ISOVUE-370 76% 100ML VIAL (Q9967) As Ordered ONE
--- NOTE | 2019-08-18 17:23 | REP ---
REASON: History of ascending thoracic aortic ectasia. Today's examination cannot be directly compared to the prior examination since today's examination was ordered and performed without intravenous contrast while the prior examination was a contrast-enhanced examination. Once again, there is evidence of ascending thoracic aortic ectasia, which does not appear to be markedly changed compared to the prior contrast-enhanced examination. There is no gross mediastinal or hilar adenopathy. There are no pleural or pericardial effusions. The imaged upper abdomen and imaged osseous structures are unchanged. The lung zimmerman are unchanged. There are no new abnormal nodules, masses, or opacities. IMPRESSION: Stable CT examination of the chest, however, limitations as described above. Electronically Signed by Ac Francisco DO 08/18/2019 05:33 P
== END ==
LOC: M RAD 10:47
PROVIDERS: ATTEND Physician Assistant
DX: I71.2 Thoracic aortic aneurysm, without rupture (principal)

== ENCOUNTER → 2020-02-18 | Outpatient (CLI) | payer MEDICARE, OTHER ==
[2020-02-18 11:58] LABS: BLOOD UREA NITROGEN 23 MG/DL (7-18); CALCIUM LEVEL 8.7 MG/DL (8.8-10.2); CARBON DIOXIDE LEVEL 34 MEQ/L (21-32); CHLORIDE LEVEL 106 MEQ/L (98-107); CREATININE FOR GFR 1.01 MG/DL (0.70-1.30); GLOMERULAR FILTRATION RATE > 60.0 (>42); GLUCOSE, FASTING 97 MG/DL (70-100); POTASSIUM SERUM 3.9 MEQ/L (3.5-5.1); SODIUM LEVEL 142 MEQ/L (136-145)
== END ==
LOC: M PLALAB 09:40
PROVIDERS: ATTEND Internal Medicine Cardiovascular Disease
DX: I10 Essential (primary) hypertension (principal)

== ENCOUNTER → 2020-02-19 | Outpatient (CLI) | payer MEDICARE, OTHER ==
[~2020-02-19] MED LIST changes: +ISOVUE-370 76% 100ML VIAL As Ordered ONE
--- NOTE | 2020-02-19 14:36 | REP ---
INDICATION: THORACIC AA COMPARISON: 02/18/2019, 08/18/2019 TECHNIQUE: Axial contrast enhanced images from the thoracic inlet to the upper abdomen using aortic angiographic technique with multiplanar re-formations. 75 ml Isovue 370 intravenous contrast material administered without complication. This CT examination was performed using the following dose reduction techniques: Automated exposure control, adjustment of mA and/or kv according to the patient's size, and use of iterative reconstruction technique. FINDINGS: Ascending thoracic aorta is unchanged and measures 4.6 cm maximal diameter with small amounts of calcified atheromatous plaquing at the aortic arch followed by tapering of the descending thoracic aorta measuring 2.7 cm just beyond the arch and tapering to 2.5 cm diameter at the diaphragmatic hiatus. No evidence for dissection. The heart is mildly enlarged and demonstrates moderate atherosclerotic changes to the coronary arteries without pericardial effusion. Pulmonary arteries are normal in appearance and caliber. The bilateral lung zimmerman are well aerated with small chronic linear scarring in the left lower lobe. No consolidation, effusion, or pneumothorax. Tracheobronchial tree is patent. No significant adenopathy. IMPRESSION: Stable thoracic aortic aneurysm without dissection. No acute mediastinal or pleuroparenchymal process. <Electronically signed by Christiano Brown > 02/19/20 [id number]
== END ==
LOC: M RAD 13:40
PROVIDERS: ATTEND Internal Medicine Cardiovascular Disease
DX: I71.2 Thoracic aortic aneurysm, without rupture (principal); I70.0 Atherosclerosis of aorta; I25.10 Atherosclerotic heart disease of native coronary artery without angina pectoris
CPT/HCPCS: 71275; Q9967

== ENCOUNTER → 2020-04-25 | Outpatient (REF) | payer MEDICARE, OTHER ==
[~2020-04-25] MED LIST changes: -ISOVUE-370 76% 100ML VIAL As Ordered ONE
== END ==
LOC: M LAB REF 16:13
PROVIDERS: ATTEND Internal Medicine
DX: E78.00 Pure hypercholesterolemia, unspecified (principal)

== ENCOUNTER → 2020-06-11 | Outpatient (CLI) | payer MEDICARE, OTHER ==
[~2020-06-11] MED LIST changes: +ALPR0.25; +ESOM40CA35; +IRBE300T7
== END ==
LOC: M LABSMTC 09:23
PROVIDERS: ATTEND Anesthesiology
DX: Z01.818 Encounter for other preprocedural examination (principal); Z20.822 Contact with and (suspected) exposure to COVID-19

== ENCOUNTER 2020-06-16 07:02 | Day surgery (SDC) | payer MEDICARE, OTHER ==
[~2020-06-16] VITALS: Ht 172.7 cm; Wt 78.8 kg
[~2020-06-16 07:02] MED LIST changes: +NS 1,000 ML IV ONE
--- NOTE | 2020-06-16 08:39 | ROOR ---
Patient Name: Shubham Mao Procedure Date: 06/16/2020 8:07 AM Date of : 1950 Age: 70 Room: [facility] Gender: Male Note Status: Finalized Procedure: Upper GI endoscopy Indications: Suspected esophageal reflux Providers: DO Denise Joy MD: Eliza MONTES DE OCA MD Requesting Provider: Medicines: Propofol per Anesthesia Complications: No immediate complications. Procedure: Pre-Anesthesia Assessment: - Prior to the procedure, a History and Physical was performed, and patient medications and allergies were reviewed. The patient is competent. The risks and benefits of the procedure and the sedation options and risks were discussed with the patient. All questions were answered and informed consent was obtained. Patient identification and proposed procedure were verified by the physician, the nurse, the case checker and the control systems technician in the endoscopy suite. Mental Status Examination: alert and oriented. Airway Examination: normal oropharyngeal airway and neck mobility. Respiratory Examination: clear to auscultation. CV Examination: normal. Prophylactic Antibiotics: The patient does not require prophylactic antibiotics. Prior Anticoagulants: The patient has taken no previous anticoagulant or antiplatelet agents. ASA Grade Assessment: II - A patient with mild systemic disease. After reviewing the risks and benefits, the patient was deemed in satisfactory condition to undergo the procedure. The anesthesia plan was to use monitored anesthesia care (MAC). Immediately prior to administration of medications, the patient was re-assessed for adequacy to receive sedatives. The heart rate, respiratory rate, oxygen saturations, blood pressure, adequacy of pulmonary ventilation, and response to care were monitored throughout the procedure. The physical status of the patient was re-assessed after the procedure. The Endoscope was introduced through the mouth, and advanced to the second part of duodenum. The upper GI endoscopy was accomplished without difficulty. The patient tolerated the procedure well. Findings: The Z-line was irregular. Biopsies were taken with a cold forceps for histology. Estimated blood loss was minimal. The exam was otherwise without abnormality. Impression: - Z-line irregular. Biopsied. - The examination was otherwise normal. Recommendation: - Patient has a contact number available for emergencies. The signs and symptoms of potential delayed complications were discussed with the patient. Return to normal activities tomorrow. Written discharge instructions were provided to the patient. - Await pathology results. - Return to my office at appointment to be scheduled. Procedure Code(s): --- Professional --- 60957, Esophagogastroduodenoscopy, flexible, transoral; with biopsy, single or multiple Diagnosis Code(s): --- Professional --- K22.8, Other specified diseases of esophagus CPT copyright 2019 [employer]. All rights reserved. The codes documented in this report are preliminary and upon inventory assistant review may be revised to meet current compliance requirements. Artemio Paiz DO 06/16/2020 8:39:03 AM Electronically signed by Artemio Paiz DO Number of Addenda: 0 Note Initiated On: 06/16/2020 8:07 AM Estimated Blood Loss: Estimated blood loss was minimal.
--- NOTE | 2020-06-16 08:41 | ROOR ---
Patient Name: Shubham Mao Procedure Date: 06/16/2020 8:07 AM Date of : 1950 Age: 70 Room: [facility] Gender: Male Note Status: Finalized Procedure: Colonoscopy Indications: High risk colon cancer surveillance: Personal history of colonic polyps Providers: DO Denise Joy MD: Eliza MONTES DE OCA MD Requesting Provider: Medicines: Propofol per Anesthesia Complications: No immediate complications. Procedure: Pre-Anesthesia Assessment: - Prior to the procedure, a History and Physical was performed, and patient medications and allergies were reviewed. The patient is competent. The risks and benefits of the procedure and the sedation options and risks were discussed with the patient. All questions were answered and informed consent was obtained. Patient identification and proposed procedure were verified by the physician, the nurse, the sleeve setter lockstitch and the quick service technician in the endoscopy suite. Mental Status Examination: alert and oriented. Airway Examination: normal oropharyngeal airway and neck mobility. Respiratory Examination: clear to auscultation. CV Examination: normal. Prophylactic Antibiotics: The patient does not require prophylactic antibiotics. Prior Anticoagulants: The patient has taken no previous anticoagulant or antiplatelet agents. ASA Grade Assessment: II - A patient with mild systemic disease. After reviewing the risks and benefits, the patient was deemed in satisfactory condition to undergo the procedure. The anesthesia plan was to use monitored anesthesia care (MAC). Immediately prior to administration of medications, the patient was re-assessed for adequacy to receive sedatives. The heart rate, respiratory rate, oxygen saturations, blood pressure, adequacy of pulmonary ventilation, and response to care were monitored throughout the procedure. The physical status of the patient was re-assessed after the procedure. The Colonoscope was introduced through the anus and advanced to the cecum, identified by appendiceal orifice and ileocecal valve. The colonoscopy was performed without difficulty. The patient tolerated the procedure well. Findings: Two hyperplastic polyps were found in the sigmoid colon and transverse colon. The polyps were 2 to 5 mm in size. These polyps were removed with a jumbo cold forceps. Resection and retrieval were complete. Estimated blood loss was minimal. Non-bleeding internal hemorrhoids were found during retroflexion. The hemorrhoids were Grade I (internal hemorrhoids that do not prolapse). Impression: - Two 2 to 5 mm polyps in the sigmoid colon and in the transverse colon, removed with a jumbo cold forceps. Resected and retrieved. - Non-bleeding internal hemorrhoids. Recommendation: - Patient has a contact number available for emergencies. The signs and symptoms of potential delayed complications were discussed with the patient. Return to normal activities tomorrow. Written discharge instructions were provided to the patient. - Await pathology results. - Return to my office at appointment to be scheduled. Procedure Code(s): --- Professional --- 13977, Colonoscopy, flexible; with biopsy, single or multiple Diagnosis Code(s): --- Professional --- Z86.010, Personal history of colonic polyps K63.5, Polyp of colon K64.0, First degree hemorrhoids CPT copyright 2019 [employer]. All rights reserved. The codes documented in this report are preliminary and upon corrections counselor review may be revised to meet current compliance requirements. Artemio Paiz DO 06/16/2020 8:41:07 AM Electronically signed by Artemio Paiz DO Number of Addenda: 0 Note Initiated On: 06/16/2020 8:07 AM Estimated Blood Loss: Estimated blood loss was minimal.
[2020-06-16] MEDS ORDERED: propofoL 200 MG/20 ML VIAL As Ordered ONE (08:44)
[2020-06-16] MEDS ORDERED: LIDOCAINE 2% 100MG/5ML SDV (FOR ANES.) As Ordered ONE (08:44)
[2020-06-16 08:55] VITALS: BP 143/65
== END 2020-06-16 09:39 | disposition home or self-care (01) ==
LOC: M OPP 07:02
PROVIDERS: ATTEND Surgery
DX: Z12.11 Encounter for screening for malignant neoplasm of colon (principal); Z86.010 Personal history of colon polyps; D12.3 Benign neoplasm of transverse colon; D12.5 Benign neoplasm of sigmoid colon; K64.8 Other hemorrhoids; K22.8 Other specified diseases of esophagus; C91.10 Chronic lymphocytic leukemia of B-cell type not having achieved remission; Z92.21 Personal history of antineoplastic chemotherapy; Z87.19 Personal history of other diseases of the digestive system; Z79.899 Other long term (current) drug therapy; Z88.8 Allergy status to other drugs, medicaments and biological substances

== ENCOUNTER → 2020-07-26 | Outpatient (CLI) | payer MEDICARE, OTHER ==
[~2020-07-26] MED LIST changes: -NS 1,000 ML IV ONE
[2020-07-26 12:49] LABS: CHOLESTEROL RISK RATIO 4.894 (<5)
== END ==
LOC: M PLALAB 08:18
PROVIDERS: ATTEND Internal Medicine
DX: E78.00 Pure hypercholesterolemia, unspecified (principal); R73.09 Other abnormal glucose

== ENCOUNTER → 2020-11-08 | Outpatient (CLI) | payer MEDICARE, OTHER ==
[2020-11-08 11:34] LABS: APPEARANCE, URINE TURBID (CLEAR); BACTERIA, URINE AUTO NEGATIVE (NEGATIVE); BILIRUBIN, URINE AUTO NEGATIVE (NEGATIVE); BLOOD, URINE BLOOD 1+ (NEGATIVE); COLOR, URINE AMBER (YELLOW); GLUCOSE, URINE (UA) AUTO NEGATIVE (NEGATIVE); KETONE, URINE AUTO NEGATIVE (NEGATIVE); LEUKOCYTE ESTERASE, URINE AUTO NEGATIVE (NEGATIVE); MUCUS, URINE SMALL (NEGATIVE); NITRITE, URINE AUTO NEGATIVE (NEGATIVE); PROTEIN, URINE AUTO NEGATIVE (NEGATIVE); RBC, URINE AUTO 2 /HPF (0-3); SPECIFIC GRAVITY URINE AUTO 1.023 (1.002-1.035); SQUAMOUS EPITHELIAL CELL UR AU 1 /HPF (0-6); UROBILINOGEN, URINE AUTO 0.2 mg/dL (0.0-2.0); WBC, URINE AUTO 2 /HPF (0-3)
[2020-11-08 11:58] LABS: CHOLESTEROL RISK RATIO 4.891 (<5); MAGNESIUM LEVEL 2.1 MG/DL (1.8-2.4); THYROID STIMULATING HORMONE 2.13 uIU/ML (0.358-3.740)
== END ==
LOC: M PLALAB 07:43
PROVIDERS: ATTEND Internal Medicine
DX: I10 Essential (primary) hypertension (principal); E78.00 Pure hypercholesterolemia, unspecified

== ENCOUNTER → 2021-04-26 | Outpatient (CLI) | payer MEDICARE, OTHER ==
[2021-04-26 10:28] LABS: CHOLESTEROL RISK RATIO 4.891 (<5); MAGNESIUM LEVEL 2.2 MG/DL (1.8-2.4)
== END ==
LOC: M PLALAB 08:23
PROVIDERS: ATTEND Internal Medicine
DX: E78.00 Pure hypercholesterolemia, unspecified (principal); I10 Essential (primary) hypertension; R73.09 Other abnormal glucose; Z83.3 Family history of diabetes mellitus

== ENCOUNTER → 2021-04-26 | Outpatient (CLI) | payer MEDICARE, OTHER ==
[2021-04-26 10:31] LABS: ALBUMIN 3.7 GM/DL (3.2-5.2); ALT/SGPT 33 U/L (12-78); BILIRUBIN,TOTAL 0.6 MG/DL (0.2-1.0); BLOOD UREA NITROGEN 24 MG/DL (7-18); CALCIUM LEVEL 9.1 MG/DL (8.8-10.2); CARBON DIOXIDE LEVEL 32 MEQ/L (21-32); CHLORIDE LEVEL 105 MEQ/L (98-107); CHOLESTEROL LEVEL 184 MG/DL (<200); CHOLESTEROL RISK RATIO 4.717 (<5); CREATININE FOR GFR 0.99 MG/DL (0.70-1.30); GLOMERULAR FILTRATION RATE > 60.0 (>42); GLUCOSE, FASTING 102 MG/DL (70-100); HDL CHOLESTEROL 39 MG/DL (>40); LDL CHOLESTEROL 98 MG/DL (<100); MAGNESIUM LEVEL 2.2 MG/DL (1.8-2.4); NON-HDL-C 145 MG/DL; POTASSIUM SERUM 3.8 MEQ/L (3.5-5.1); SODIUM LEVEL 141 MEQ/L (136-145); TOTAL PROTEIN 6.9 GM/DL (6.4-8.2); TRIGLYCERIDES LEVEL 235 MG/DL (<150)
== END ==
LOC: M PLALAB 08:27
PROVIDERS: ATTEND Physician Assistant
DX: E78.2 Mixed hyperlipidemia (principal); I10 Essential (primary) hypertension; R73.09 Other abnormal glucose; Z83.3 Family history of diabetes mellitus

== ENCOUNTER → 2022-01-23 | Outpatient (REF) | payer MEDICARE, OTHER | LOC: M LAB REF 16:08 | PROVIDERS: ATTEND Internal Medicine | DX: M25.50 Pain in unspecified joint (principal) ==

== ENCOUNTER → 2022-03-29 | Outpatient (REF) | payer MEDICARE, OTHER | LOC: M LAB REF 16:15 | PROVIDERS: ATTEND Internal Medicine | DX: L03.90 Cellulitis, unspecified (principal) ==